=== PATIENT | female | born 1950 | race African-American/Black ===

== ENCOUNTER 2017-09-20 16:02 | Emergency (ER) | payer OTHER ==
[~2017-09-20] VITALS: Ht 157.5 cm; Wt 68.0 kg
[~2017-09-20 16:02] MED LIST: FEMARA2.5 MG; HYDROCHLOROTH12.5 M1; HYZAAR 100-251 UDTAB; NORVASC2.5 MG; SYNTHROID50 MCG; TOPROL XL25 MG
[2017-09-20] MEDS ORDERED: ECOTRIN81 MG (16:29)
[2017-09-20] MEDS ORDERED: ANASTROZOLE1 MG (16:29)
== END 2017-09-20 21:29 | disposition home or self-care (01) ==
LOC: ER 16:02
DX: K29.60 Other gastritis without bleeding (principal); R12 Heartburn; F41.8 Other specified anxiety disorders

== ENCOUNTER 2017-12-03 07:32 | Outpatient (CLI) | payer OTHER ==
[~2017-12-03 07:32] MED LIST changes: +ANASTROZOLE1 MG; +ECOTRIN81 MG
== END 2017-12-03 07:40 | disposition home or self-care (01) ==
LOC: SONOGRAMA 07:32
DX: E03.8 Other specified hypothyroidism (principal); E07.89 Other specified disorders of thyroid

== ENCOUNTER → 2018-07-22 07:31 | Outpatient (CLI) | payer OTHER | END | disposition home or self-care (01) | LOC: LAB 07:31 | DX: J45.998 Other asthma (principal); E11.65 Type 2 diabetes mellitus with hyperglycemia; D64.89 Other specified anemias; N39.0 Urinary tract infection, site not specified ==

== ENCOUNTER → 2018-07-26 | Outpatient (CLI) | payer OTHER | END | disposition home or self-care (01) | LOC: NUCLEAR 13:44 | DX: M81.0 Age-related osteoporosis without current pathological fracture (principal) ==

== ENCOUNTER → 2019-03-17 07:04 | Outpatient (CLI) | payer OTHER | END | disposition home or self-care (01) | LOC: LAB 07:04 | DX: D64.89 Other specified anemias (principal); E03.8 Other specified hypothyroidism; E11.65 Type 2 diabetes mellitus with hyperglycemia; N39.0 Urinary tract infection, site not specified ==

== ENCOUNTER 2020-06-05 10:17 | Outpatient (CLI) | payer OTHER | END 2020-06-05 10:18 | disposition home or self-care (01) | LOC: SONOGRAMA 10:17 → MAMO-SONO 10:30 | PROVIDERS: ATTEND Specialist | DX: E03.8 Other specified hypothyroidism (principal); E04.1 Nontoxic single thyroid nodule ==

== ENCOUNTER 2020-08-14 15:05 | Outpatient (CLI) | payer OTHER | END 2020-08-14 15:18 | disposition home or self-care (01) | LOC: RAD 15:05 | PROVIDERS: ATTEND Specialist | DX: M62.838 Other muscle spasm (principal) ==

== ENCOUNTER 2022-03-16 01:55 | Emergency (ER) | payer OTHER ==
[~2022-03-16] VITALS: Ht 157.5 cm; Wt 72.1 kg
[2022-03-16] MEDS ORDERED: PEPCID40 MG PO (06:18)
[2022-03-16] MEDS ORDERED: ONDANSETRON ODT4 MG PO (06:18)
[2022-03-16] MEDS ORDERED: ZOFRAN8 MG PO (06:18)
[2022-03-16] MEDS ORDERED: INTESTINEX680 M1 PO ×2 (06:18→06:20)
[2022-03-16] MEDS ORDERED: CEPHALEXIN500 MG PO ×2 (06:20)
== END 2022-03-16 06:26 ==
LOC: ER 01:55
DX: R55 Syncope and collapse (principal); I10 Essential (primary) hypertension

== ENCOUNTER → 2024-05-09 13:00 | Outpatient (CLI) | payer OTHER ==
[~2024-05-09 13:00] MED LIST changes: +CEPHALEXIN500 MG PO; +INTESTINEX680 M1 PO; +ONDANSETRON ODT4 MG PO; +PEPCID40 MG PO; +ZOFRAN8 MG PO
== END | disposition home or self-care (01) ==
LOC: NUCLEAR 05-02 13:30
PROVIDERS: ATTEND Internal Medicine
DX: M85.80 Other specified disorders of bone density and structure, unspecified site (principal); M81.0 Age-related osteoporosis without current pathological fracture